=== PATIENT | male | born 1950 | race Caucasian/White ===

== ENCOUNTER 2021-02-27 15:27 | Observation (INO) ==
[2021-02-27 18:30] LABS: ABS Eosinophils 0.1 10^3/ul (0-0.6); ABS Lymphocytes 2.2 10^3/ul (1.0-4.8); ABS Neutrophils 8.4 10^3/ul (1.5-7.7); Eosinophil % 0.8 %; Hematocrit 45 % (42-52); Hemoglobin 14.9 g/dL (14.0-18.0); Lymphocyte % 18.9 %; Mean Corpuscular HGB Conc 34 g/dL (31-36); Mean Corpuscular Hemoglobin 32 pg (27-31); Mean Corpuscular Volume 96 fL (80-94); Mean Platelet Volume 8.9 fL (7.4-10.4); Platelet Count 179 10^3/uL (150-450); Red Blood Count 4.64 10^6 /uL (4.18-5.48); Red Cell Distribution Width 14 % (10-15); White Blood Count 11.7 10^3/uL (3.5-10.8)
[2021-02-27 18:38] LABS: INR 1.05 (0.86-1.15)
[2021-02-27 18:48] LABS: Ammonia 24 mcmol/L (16-53)
[2021-02-27 18:51] LABS: Albumin/Globulin Ratio 1.5 (1-3); C Reactive Protein 6.71 mg/L (<8.01); Calcium 8.7 mg/dL (8.6-10.3); EGFR African American 104.4 (>60); EGFR Non-African American 86.3 (>60); Globulin 2.7 g/dL (2-4); Potassium 3.5 mmol/L (3.5-5.0); Total Bilirubin 1.4 mg/dL (0.2-1.0); Total Protein 6.7 g/dL (6.4-8.9)
[2021-02-27] MEDS ORDERED: Iohexol 300 (CONTRAST) 10 ML SDV IV ONE (19:12)
[2021-02-27 21:05] LABS: Urine Appearance Clear; Urine Bilirubin Negative (Negative); Urine Blood Negative (Negative); Urine Color Straw; Urine Glucose Negative (Negative); Urine Ketones 1+ (Negative); Urine Nitrite Negative (Negative); Urine Protein Negative (Negative); Urine Specific Gravity 1.026 (1.002-1.030); Urine Urobilinogen Negative (Negative)
[2021-02-27] MEDS ORDERED: Enoxaparin 80 MG/0.8 ML SYR SUBCUT ONE (21:21)
[2021-02-27 21:49] LABS: HDL Cholesterol 64.6 mg/dL
[2021-02-27 21:52] LABS: BNP 770 pg/mL (<=100)
[2021-02-27] MEDS ORDERED: Potassium Chloride LIQUID 20 MEQ/15 ML LIQUID PO ONE (22:34)
[2021-02-28] MEDS: Nicotine PATCH 21 MG/24 HR PATCH TRANSDERM SCH ×2 (03:25→07:43)
[2021-02-28 07:17] LABS: ABS Basophils 0.1 10^3/ul (0-0.2); ABS Monocytes 1.1 10^3/ul (0-0.8); Eosinophil % 0.3 %; Hematocrit 43 % (42-52); Lymphocyte % 14.3 %; Mean Corpuscular HGB Conc 35 g/dL (31-36); Mean Corpuscular Hemoglobin 33 pg (27-31); Mean Corpuscular Volume 95 fL (80-94); Mean Platelet Volume 9.1 fL (7.4-10.4); Platelet Count 175 10^3/uL (150-450); Red Blood Count 4.51 10^6 /uL (4.18-5.48); Red Cell Distribution Width 14 % (10-15); White Blood Count 14.2 10^3/uL (3.5-10.8)
[2021-02-28 07:35] LABS: Calcium 8.4 mg/dL (8.6-10.3); EGFR African American 104.4 (>60); EGFR Non-African American 86.3 (>60); Potassium 4.4 mmol/L (3.5-5.0)
[2021-02-28] MEDS ORDERED: Nicotine GUM 2MG FRUIT FLAVOR PO PRN (10:26)
[2021-02-28] MEDS: Enoxaparin 80 MG/0.8 ML SYR SUBCUT SCH ×2 (11:36→23:47)
[2021-03-01 06:53] LABS: Hematocrit 40 % (42-52); Hemoglobin 13.7 g/dL (14.0-18.0); Mean Corpuscular HGB Conc 34 g/dL (31-36); Mean Corpuscular Hemoglobin 32 pg (27-31); Mean Corpuscular Volume 95 fL (80-94); Mean Platelet Volume 9.7 fL (7.4-10.4); Platelet Count 159 10^3/uL (150-450); Red Blood Count 4.25 10^6 /uL (4.18-5.48); Red Cell Distribution Width 14 % (10-15); White Blood Count 10.7 10^3/uL (3.5-10.8)
[2021-03-01 07:10] LABS: Calcium 8.3 mg/dL (8.6-10.3); EGFR African American 110.2 (>60); EGFR Non-African American 91.1 (>60)
[2021-03-01] MEDS: Nicotine PATCH 21 MG/24 HR PATCH TRANSDERM SCH (08:05)
[2021-03-01] MEDS: Enoxaparin 80 MG/0.8 ML SYR SUBCUT SCH (09:51)
[2021-03-01 12:43] VITALS: BP 126/61
[2021-03-06 08:43] LABS: Beta 2 Glycoprotein IgG <9.4
[2021-03-11 18:50] LABS: Factor V Leiden Mutation Negative (Negative)
== END 2021-03-01 15:20 | disposition home or self-care (01) ==
LOC: MEDTELE 15:27 → ED 15:27
PROVIDERS: ADMIT Internal Medicine; ATTEND Internal Medicine